=== PATIENT | female | born 1955 | race African-American/Black ===

== ENCOUNTER 2017-01-15 21:39 | Emergency (ER) | payer OTHER ==
[~2017-01-15] VITALS: Ht 154.9 cm; Wt 54.4 kg
[~2017-01-15 21:39] MED LIST: ACETAMINOPHEN-1 EAC1 ORAL; CYCLOBENZAPRINE10 MG ORAL
[2017-01-15 21:50] VITALS: BP 126/79
[2017-01-15] MEDS ORDERED: CYCLOBENZAPRINE10 MG ORAL (22:06)
[2017-01-15] MEDS ORDERED: NEURONTIN300 MG ORAL (22:06)
--- NOTE | 2017-01-15 22:07 | Emergency Room Report ---
History of Present Illness General Chief Complaint: Medication Refill Source: Patient Present Illness HPI Is a 61-year-old female with history of chronic pain with right leg pain. She presents with chief complaint of medication refill. She want any dose of Flexeril. Also want Tylenol with codeine. Denies any fever or chills. Pain been ongoing since he doesn't 16. Pain is sharp down her right leg. No nausea no vomiting. She claimed that she had an MRI in the cause her pain. Denies any other complaint. She said her doctor is at the [facility] but she can't make it due to transportation. Denies any fever chills denies any nausea vomiting. Denies any fever chills denies any weight loss. Allergies: Coded Allergies: No Known Allergies (Unverified , 08/19/15) Patient History Past Medical History: see triage record, old chart reviewed Past Surgical History: other Pertinent Family History: none Social History: Reports: smoking Now: No Immunizations: other Reviewed Nursing Documentation: PMH: Agreed, PSxH: Agreed Nursing Documentation-PMH Past Medical History: No History, Except For Hx Cardiac Problems: No History Of Psychiatric Problem: No - Chronic right hip pain Review of Systems Eye: Denies: eye pain, blurred vision ENT: Denies: ear pain, nose congestion, throat swelling Respiratory: Denies: cough, shortness of breath Cardiovascular: Denies: chest pain, palpitations Gastrointestinal: Denies: abdominal pain, diarrhea, nausea, vomiting Musculoskeletal: Reports: back pain, muscle pain, Denies: joint pain Skin: Denies: rash Neurological: Denies: headache, numbness Endocrine: Denies: increased thirst, increased urine Hematologic/Lymphatic: Denies: easy bruising All Other Systems: negative except mentioned in HPI Physical Exam Vital Signs Date Time Temp Pulse Resp B/P (MAP) Pulse Ox O2 Delivery O2 Flow Rate FiO2 01/15/17 21:43 98.2 98 17 126/79 100 Room Air vitals normal Sp02 EP Interpretation: reviewed, normal General Appearance: well appearing, no apparent distress, alert, thin Head: normocephalic, atraumatic Eyes: bilateral eye PERRL, bilateral eye EOMI ENT: hearing grossly normal, normal pharynx Neck: full range of motion, supple, no meningismus Respiratory: chest non-tender, lungs clear, normal breath sounds Cardiovascular #1: regular rate, rhythm, no murmur Gastrointestinal: normal bowel sounds, non tender, no mass, no organomegaly, no bruit, non-distended Musculoskeletal: back normal, gait/station normal, normal range of motion Neurologic: alert, oriented x3 Psychiatric: mood/affect normal Skin: warm/dry Medical Decision Making Diagnostic Impression: Primary Impression: Chronic pain Qualified Codes: G89.4 - Chronic pain syndrome Additional Impression: Encounter for medication refill ER Course Patient complaining of exacerbation chronic pain. She is asking for refill on Flexeril. Explained to her this is only one dose of Flexeril. Also requesting Tylenol No. 3. On the [employer] system patient has been to [facility] and the [facility] by [facility]. This is recently. So there is really no excuse for her not able to make it to her doctor's appointment. We' ll discharge home. I see no red flags indicate cauda equina syndrome, spinal epidural abscess or neoplastic process. Last Vital Signs Date Time Temp Pulse Resp B/P (MAP) Pulse Ox O2 Delivery O2 Flow Rate FiO2 01/15/17 21:43 98.2 98 17 126/79 100 Room Air Status: unchanged Disposition: HOME, SELF-CARE Condition: Stable Scripts Gabapentin (Neurontin) 300 Mg Capsule 300 MG ORAL THREE TIMES A DAY, #30 CAP 0 Refills Prov: SANTIAGO MULLIGAN M.D. 01/15/17 Cyclobenzaprine Hcl* (FLEXERIL*) 10 Mg Tablet 10 MG ORAL TID Y for Muscle Spasm, #30 TAB Prov: SANTIAGO MULLIGAN M.D. 01/15/17 Patient Instructions: Medicine Refill at the Emergency Department Additional Instructions: Followup with your DrTami in 7 days. Return if symptom worsen. Stop smoking SANTIAGO MULLIGAN M.D. Jan 15, 2017 22:06
[2017-01-15 22:19] VITALS: BP 114/78
== END 2017-01-15 22:21 | disposition home or self-care (01) ==
LOC: EMR 22:10
DX: G89.29 Other chronic pain (principal); M25.551 Pain in right hip; Z76.0 Encounter for issue of repeat prescription
CPT/HCPCS: 99284